=== PATIENT | female | born 1980 | race Caucasian/White ===

== ENCOUNTER 2016-04-27 16:54 | Observation (INO) | payer OTHER ==
--- NOTE | 2016-04-27 17:52 | EDPHY ---
H & P Stated Complaint: Back/abd pain;seen at [facility] [place],tx'd w/GI cocktail &Valium that relieved pain Time Seen by Provider: 04/27/16 17:38 HPI/ROS: CHIEF COMPLAINT: Abdominal pain, lower back pain. HISTORY OF PRESENT ILLNESS: The patient is a 35-year-old female who presents with abdominal pain and upper lumbar back pain since yesterday morning. The pain has been mostly constant since onset. The back pain is paraspinous and mostly on the right side. It stopped for 90 minutes spontaneously but returned. She admits associated nausea but denies vomiting. She denies alleviating or provoking factors. She was seen at [facility] [place] earlier today and had a GI cocktail and 5mg Valium, which improved her pain, but the pain returned. No peripheral edema. No fever, chills, chest pain, shortness of breath, palpitations, diarrhea , urinary complaints, headache, lightheadedness. REVIEW OF SYSTEMS: Aside from elements discussed in the HPI, a comprehensive 10-point review of systems was reviewed and is negative. PAST MEDICAL HISTORY: Possible esophageal spasms? No abscess of ulcer disease , reflux, GERD, or gallstones. SOCIAL HISTORY: Nonsmoker, social alcohol use. VITAL SIGNS: Reviewed by me GENERAL: Well-developed, well-nourished, seems moderately uncomfortable. HEENT: Atraumatic. Eyes: No icterus, no injection. Mouth: dry mucous membranes. No erythema or lesions. Neck: supple with no adenopathy. LUNGS: Clear to auscultation bilaterally, no wheezes, rhonchi or rales. CARDIAC: Regular rate and rhythm, no rubs, murmurs or gallops. ABDOMEN: Epigastric, RUQ tenderness. Positive Mckeon's sign. Soft, nondistended , bowel sounds normal. BACK: Pain indicated to be in upper lumbar, lower thoracic region. No lumbar spine tenderness. No CVA tenderness. EXTREMITIES: No trauma. No edema. Range of motion is normal throughout. NEURO: Alert and oriented, grossly nonfocal. SKIN: Warm and dry, no rash. PSYCHIATRIC: Normal mentation, no agitation. Portions of this note were transcribed by a medical billing supervisor. I personally performed a history, physical exam, medical decision making, and confirmed accuracy of information the transcribed note. Source: Patient Exam Limitations: No limitations - Personal History LMP (Females 10-55): 1-7 Days Ago Current Tetanus Diphtheria and Acellular Pertussis (TDAP): Yes - Medical/Surgical History Other PMH: tachycardia in past - Social History Smoking Status: Never smoked Constitutional: Initial Vital Signs Temperature (C) 36.6 C 04/27/16 16:55 Heart Rate 98 04/27/16 16:55 Respiratory Rate 18 04/27/16 16:55 Blood Pressure 125/87 H 04/27/16 16:55 O2 Sat (%) 97 04/27/16 16:55 O2 Delivery Mode Nasal Cannula O2 (L/minute) 2 Allergies/Adverse Reactions: No Known Allergies Allergy (Unverified 04/27/16 17:00) Home Medications: Medication Instructions Recorded Amphet Asp and D/Amphet [Adderall 20 mg PO DAILY 04/27/16 20 mg (*)] Herbals/Supplements -Info Only 1 ea PO DAILY 04/27/16 Herbals/Supplements -Info Only 1 ea PO DAILY 04/27/16 Multivitamins [Multivitamin (*)] 1 each PO DAILY 04/27/16 Norgestimate-Ethinyl Estradiol 1 each PO DAILY 04/27/16 [Ortho Tri-Cyclen Lo Tablet] Medical Decision Making - Diagnostics Imaging: Study: Ultrasound of the: Indication: Results: 1. Cholelithiasis, gallbladder wall thickening and sonographic Mckeon sign suggest acute cholecystitis. 2. No free fluid or evidence of common bile duct stone. The study was read by the radiologist, Dr. Sweet. I viewed the images myself on the PACS system. ED Course/Re-evaluation: An IV was established and labs ordered. 1L IV saline administered for hydration , along with 1mg IV Dilaudid for pain and 4mg IV Zofran for nausea. RUQ ultrasound ordered. 1899: Ultrasound reported to me by Dr. Sweet as acute cholecystitis. 1904: Consulted with Dr. Plaza, surgery, who will evaluate the patient. Results of the ultrasound discussed with the patient. Dr. Will evaluated the patient emergency department, and agrees with admission and surgery. Patient was stable throughout her emergency department course. Differential Diagnosis: Differential diagnosis for the patient' upper abdominal pain including but not limited to cholecystitis, gastritis, peptic ulcers disease, and pancreatitis. Consult/Admit Bed Type: Dr. Ari Will, med surg - Data Points Laboratory Results: Laboratory Results 04/27/16 17:45 04/27/16 17:45 Medications Given: Discontinued Medications Acetaminophen/Hydrocodone Bitart ([place] 5/325) 1 - 2 tab PO Q4 PRN PRN Reason: Pain, Moderate Able to Take PO Stop: 05/07/16 21:59 Last Admin: 04/28/16 08:08 Dose: 2 tab Hydromorphone HCl (Dilaudid) 1 mg IVP EDNOW ONE Stop: 04/27/16 18:03 Last Admin: 04/27/16 18:15 Dose: 1 mg Hydromorphone HCl (Dilaudid) 1 mg IVP EDNOW ONE Stop: 04/27/16 19:49 Last Admin: 04/27/16 20:15 Dose: 1 mg Hydromorphone HCl (Dilaudid) 0.2 - 0.4 mg IVP Q1HR PRN PRN Reason: Pain, Severe Unable to Take PO Stop: 05/07/16 21:57 Last Admin: 04/28/16 01:31 Dose: 0.4 mg Sodium Chloride (Ns) 1,000 mls @ 0 mls/hr IV ONCE ONE PRN Reason: Wide Open Stop: 04/27/16 18:03 Last Admin: 04/27/16 18:15 Dose: 1,000 mls Ibuprofen (Motrin) 600 mg PO Q6H PRN PRN Reason: PAIN MILD Stop: 10/25/16 10:04 Last Admin: 04/28/16 10:15 Dose: 600 mg Miscellaneous Medication (Norgestimate-Ethinyl Estradiol [Ortho Tri-Cyclen Lo Tablet]) 0 each PO DAILY [place] Stop: 10/25/16 08:59 Last Admin: 04/28/16 08:09 Dose: Not Given Ondansetron HCl (Zofran) 4 mg IVP EDNOW ONE Stop: 04/27/16 18:03 Last Admin: 04/27/16 18:15 Dose: 4 mg Departure - Departure Disposition: [facility] Acute Clinical Impression: Cholecystitis Abdominal pain Qualifiers: Abdominal location: right upper quadrant Qualifier Code: (R10.11) Right upper quadrant pain Condition: Fair Report Scribed for: Joy Finch Report Scribed by: Connor Duncan Date of Report: 04/27/16 Time of Report: 17:48
[2016-04-27] MEDS ORDERED: ONDANSETRON 4 MG/2 ML VIAL IVP ONE (18:02)
[2016-04-27] MEDS ORDERED: HYDROmorphONE/DILAUDID 1 MG/ML SYR IVP ONE ×2 (18:02→19:48)
[2016-04-27] MEDS ORDERED: NS 1,000 ML IV ONE (18:02)
[2016-04-27 18:06] LABS: % IMMATURE GRANULYOCYTES 0.2 % (0.0-1.1); ABSOLUTE IMMATURE GRANULOCYTES 0.02 10^3/uL (0.00-0.10); ADD DIFF? NO; ADD MORPH? NO; ADD SCAN? NO; ATYPICAL LYMPHOCYTE FLAG 30 (0-99); FRAGMENT RBC FLAG 0 (0-99); HEMATOCRIT 39.9 % (38.0-47.0); HEMOGLOBIN 14.4 g/dL (12.6-16.3); LEFT SHIFT FLG 0 (0-99); LIPEMIA HEMOLYSIS FLAG 90 (0-99); MEAN CELL HEMOGLOBIN 30.1 pg (27.9-34.1); MEAN CELL HEMOGLOBIN CONCENTR. 36.1 g/dL (32.4-36.7); MEAN CELL VOLUME 83.5 fL (81.5-99.8); MEAN PLATELET VOLUME 8.3 fL (8.7-11.7); PLATELET CLUMPS FLAG 0 (0-99); PLATELET COUNT 318 10^3/uL (150-400); RED BLOOD CELL COUNT 4.78 10^6/uL (4.18-5.33); RED CELL DISTRIBUTION WIDTH 11.7 % (11.5-15.2)
[2016-04-27 18:20] LABS: ALANINE AMINOTRANSFERASE 24 IU/L (9-52); ALBUMIN 3.9 g/dL (3.5-5.0); ALKALINE PHOSPHATASE 83 IU/L (38-126); ANION GAP 12 mEq/L (8-16); ASPARTATE AMINOTRANSFERASE 23 IU/L (14-46); BILIRUBIN,TOTAL 0.9 mg/dL (0.1-1.4); BILIRUBIN-CONJUGATED 0.2 mg/dL (0.0-0.5); BILIRUBIN-UNCONJUGATED 0.7 mg/dL (0.0-1.1); CALCIUM 8.9 mg/dL (8.5-10.4); CARBON DIOXIDE 25 mEq/l (22-31); CHLORIDE 104 mEq/L (97-110); CREATININE 0.7 mg/dL (0.6-1.0); GLOMERULAR FILTRATION RATE > 60; GLUCOSE 110 mg/dL (70-100); POTASSIUM 3.5 mEq/L (3.5-5.2); SODIUM 141 mEq/L (134-144)
--- NOTE | 2016-04-27 19:01 | US ---
Right Upper Quadrant Sonogram 18:16 p.m. Indication: Right upper quadrant pain. Comparison: None Findings: The normal size liver, measuring 15.6 cm in the midaxillary line, has normal echogenicity a nd echotexture. No sonographic mass or biliary dilation. The gallbladder is filled with echogenic stones and sludge resulting in a "wall echo shadow complex". The gallbladder wall is thickened and partially obscured by the stones measuring up to 7 mm. A sono graphic Mckeon sign was elicited. Common bile duct is upper normal caliber (6 mm mm). No echogenic de bris within the duct. Portal vein is patent. The abdominal aorta is normal caliber. The right kidney is unremarkable. No hydronephrosis. The right kidney measures 10.7 cm in length x 3. 5 x 5 cm axially. No free fluid. The imaged portions of the pancreatic neck, head, and central body are normal. No nicole pancreatic fluid. The pancreatic tail is obscured by bowel gas. Impression: 1. Cholelithiasis, gallbladder wall thickening and sonographic Mckeon sign suggest acute cholecystiti s. 2. No free fluid or evidence of common bile duct stone. Comment: Results were discussed with Dr. Joy Finch at 7 p.m. April 27, 2016.
[2016-04-27] MEDS ORDERED: MIDAZOLAM 2 MG/2 ML VIAL ONE (20:34)
[2016-04-27] MEDS ORDERED: BUPIVACAINE/EPI 0.5% 30 ML SDV ONE (20:39)
[2016-04-27] MEDS ORDERED: SKIN ADHESIVE (DERMABOND) 1 EACH TP ONE (20:39)
[2016-04-27] MEDS ORDERED: PROPOFOL 200 MG/20 ML VIAL ONE (20:39)
[2016-04-27] MEDS ORDERED: fentaNYL 100 MCG/2 ML INJ ONE (20:39)
[2016-04-27] MEDS ORDERED: LIDOCAINE 2% 5 ML SDV ONE (20:41)
[2016-04-27] MEDS ORDERED: DEXAMETHASONE 4 MG/ML VIAL ONE ×2 (20:41)
[2016-04-27] MEDS ORDERED: ONDANSETRON 4 MG/2 ML VIAL ONE (20:42)
[2016-04-27] MEDS ORDERED: NEOSTIGMINE METHYLSULFATE 5 MG/5 ML SYR ONE (20:42)
[2016-04-27] MEDS ORDERED: GLYCOPYRROLATE 0.2 MG/1 ML VIAL ONE ×2 (20:42)
[2016-04-27] MEDS ORDERED: ROCURONIUM 50 MG/5 ML VIAL ONE (20:42)
[2016-04-27] MEDS ORDERED: ceFAZolin 1 GM VIAL ONE ×2 (20:54)
[2016-04-27] MEDS ORDERED: ESMOLOL HCL 100 MG/10 ML VIAL IV ONE ×2 (21:10)
[2016-04-27] MEDS ORDERED: ONDANSETRON 4 MG/2 ML VIAL IVP PRN (21:58)
--- NOTE | 2016-04-27 21:58 | POSTOPPROG ---
Post Op Note Date of Operation: 04/27/16 Surgeon: Ari Will Anesthesiologist: stephanie garcia Pre-op Diagnosis: acute cholecystitis Post-op Diagnosis: same Indication: same Procedure: lap choly Findings: acute choly Inf/Abcess present in the surg proc area at time of surgery?: No EBL: Minimal Complications: none Specimen(s): gallbladder
[2016-04-27] MEDS ORDERED: HYDROCODONE/APAP 5/325 TAB PO PRN (22:00)
[2016-04-27] MEDS ORDERED: LR 1,000 ML IV SCH (22:00)
--- NOTE | 2016-04-27 22:02 | GOP ---
[f rep st] OPERATIVE REPORT DATE OF OPERATION: SURGEON: Ari Will MD ANESTHESIA: General anesthetic. PREOPERATIVE DIAGNOSIS: Cholelithiasis, cholecystitis. POSTOPERATIVE DIAGNOSIS: Cholelithiasis, cholecystitis. PROCEDURE PERFORMED: Laparoscopic cholecystectomy. FINDINGS: INDICATIONS: The patient with unrelenting right upper quadrant pain, cholelithiasis. DESCRIPTION OF PROCEDURE: The abdomen scrubbed with ChloraPrep draped in the usual sterile fashion. Infraumbilical incision made. A Veress needle used to achieve a pneumoperitoneum. The gallbladder was pushed cephalad. The cystic duct and artery were identified. Cleared her surrounding tissue. T he cystic plate fully exposed and then the duct and artery clipped and divided. The gallbladder was removed from below upward with electrocautery and extracted in an Endopouch. There was no bleeding i n the liver bed. All gas and fluid was aspirated from the abdomen. The fascial defect at the umbili cus was closed with an 0 Vicryl figure of 8. Skin with 4-0 Monocryl and Dermabond. The patient tole rated the procedure well. SURGEON: Ari Will MD. /[id number]/MODL
[2016-04-27] MEDS: HYDROmorphONE/DILAUDID 1 MG/ML SYR IVP PRN (22:58)
[2016-04-28] MEDS: HYDROmorphONE/DILAUDID 1 MG/ML SYR IVP PRN (01:31)
[2016-04-28] MEDS ORDERED: NORGESTIMATE ETHINYL ESTRADIOL PO SCH (09:00)
[2016-04-28] MEDS ORDERED: IBUPROFEN 600 MG TAB PO PRN (10:05)
[2016-04-28 11:26] VITALS: BP 101/66; PULSE 72; RESP 16; TEMP 98.1; O2SAT 98
== END 2016-04-28 12:30 | disposition home or self-care (01) ==
LOC: F3E 22:27
PROVIDERS: ADMIT Surgery; ATTEND Surgery
PROC: 0FT44ZZ Resection of Gallbladder, Percutaneous Endoscopic Approach (ICD-10-PCS; principal; 2016-04-27 20:44)
DX: K80.00 Calculus of gallbladder with acute cholecystitis without obstruction (principal)
CPT/HCPCS: 47562; 76705; 96361; 96374; 96375; 96376; 99285; G0378; J0690; J1100; J1170; J2250; J2405; J2704; J2710; J3010

== ENCOUNTER 2017-11-30 11:13 | Emergency (ER) | payer OTHER ==
--- NOTE | 2017-11-30 11:47 | EDPHY ---
H & P Stated Complaint: right thumb injury while washing dishes last night Time Seen by Provider: 11/30/17 11:44 HPI/ROS: HPI: This is a 37-year-old female who presents with Chief Complaint: right thumb injury while washing dishes last night Location: Right thumb Quality: Laceration Duration: 8 or 9:00 p.m. Signs and Symptoms: No bleeding, no radiation, no numbness, no weakness, no tingling, no incontinence,+ decreased range of motion, no swelling, no pain, no fever Timing: Acute Severity: Mild Context: Patient is right-hand dominant, presents with accidentally cutting her right thumb on the dorsal aspect, yesterday evening around 8 or 9:00 p.m. With a knife while cutting vegetables in her kitchen. She reports that it mildly started to bleed but stopped with direct pressure. She took Advil and went to bed. She applied ice this morning. This afternoon she noted the inability to extend the distal portion of her right thumb. She denies any numbness/paresthesias/skin color changes. Tetanus is current. Modifying Factors: See above Comment: ROS: see HPI Constitutional: No fever, no chills, no weight loss Eyes: No blurred vision Respiratory: No shortness of breath, no cough Cardiovascular: No chest pain Gastrointestinal: No nausea, no vomiting no diarrhea Genitourinary: No dysuria Extremities: No myalgias Neurologic: No weakness, no numbness Skin: No rashes Hematologic: No bruising, no bleeding MEDICAL/SURGICAL/SOCIAL HISTORY: Medical/surgical history: tachycardia in past, ADHD, leora, ankle fx Social history: Employed. Nonsmoker. CONSTITUTIONAL: Extremely polite and cooperative middle-aged white female, awake and alert, no obvious distress HEENT: Atraumatic and normocephalic. EXTREMITIES: 2/2 pulses, strength 5/5, right thumb shows 0.5 mm simple, superficial, linear laceration between the DIP and MCP joint; PIP flexion intact. Mild decrease of extension noted at the DI P joint. MCP flexion/ extension intact with good light touch sensation. no deformities, no clubbing, no cyanosis or edema. NEUROLOGICAL: no focal neuro deficits. GCS 15. Light touch sensation intact. SKIN: Warm and dry, no erythema. no rash. Good capillary refill. Source: Patient Exam Limitations: No limitations - Personal History LMP (Females 10-55): 1-7 Days Ago Current Tetanus/Diphtheria Vaccine: Yes Current Tetanus Diphtheria and Acellular Pertussis (TDAP): Yes Tetanus Vaccine Date: < 10 years - Medical/Surgical History Hx Asthma: No Hx Chronic Respiratory Disease: No Hx Diabetes: No Hx Cardiac Disease: No Hx Renal Disease: No Hx Cirrhosis: No Hx Alcoholism: No Hx HIV/AIDS: No Hx Splenectomy or Spleen Trauma: No Other PMH: tachycardia in past, ADHD, leora, ankle fx - Social History Smoking Status: Never smoked Constitutional: Initial Vital Signs Temperature (C) 36.6 C 11/30/17 11:15 Heart Rate 87 11/30/17 11:15 Respiratory Rate 18 11/30/17 11:15 Blood Pressure 114/80 11/30/17 11:15 O2 Sat (%) 97 11/30/17 11:15 O2 Delivery Mode Room Air Allergies/Adverse Reactions: No Known Allergies Allergy (Verified 11/30/17 11:15) Home Medications: Medication Instructions Recorded Amphet Asp and D/Amphet [Adderall 20 mg PO DAILY 04/27/16 20 mg (*)] Herbals/Supplements -Info Only 1 ea PO DAILY 04/27/16 Herbals/Supplements -Info Only 1 ea PO DAILY 04/27/16 Multivitamins [Multivitamin (*)] 1 each PO DAILY 04/27/16 Norgestimate-Ethinyl Estradiol 1 each PO DAILY 04/27/16 [Ortho Tri-Cyclen Lo Tablet] Cephalexin [Keflex (*)] 500 mg PO TID #21 cap 11/30/17 Medical Decision Making Procedures: Procedure: Splint placement. A left thumb aluminum finger splint was applied by the Emergency Room machine set up technician. After application of the splint I returned and re-examined the patient. The splint was adequately immobilizing the joint and distal to the splint the patient's circulation and sensation was intact. ED Course/Re-evaluation: Vital signs reviewed and stable upon arrival. Mild decrease and DI P joint at the thumb extensor mechanism noted. Laceration is superficial and < 1 mm; sutures not indicated; copiously irrigated ; Steri-Strips and clean sterile dressing applied. Will Start on Keflex for antibiotic prophylaxis due to delay in treatment Placed in aluminum finger splint with Hand surgery follow-up. No signs of neurovascular compromise/tenting of skin/compartment syndrome/ extremities and joints examined above and below area of concern and are neurovascularly intact. This patient was seen under the supervision of my secondary supervising physician. I evaluated care for this patient independently. Discussed this patient with Dr. Lackey. Differential Diagnosis: Differential diagnosis includes but is not limited to tendon rupture, nerve injury, sprain, laceration, foreign body. Departure - Departure Disposition: Home, Routine, Self-Care Clinical Impression: Injury of extensor or abductor muscles and tendons of right thumb at forearm level Qualifiers: Encounter type: initial encounter Qualified Code(s): S56.301A - Unspecified injury of extensor or abductor muscles, fascia and tendons of right thumb at forearm level, initial encounter Condition: Good Instructions: Steristrips (ED), Finger Laceration (ED), Tendon Laceration (ED) Additional Instructions: Wear the splint and keep dry and in place for 2-3 days. After 2-3 days, you may remove the dressing and splint; wash the site with mild soap and water and pat dry. Allow Steri-Strips to fall off on their own. Take Tylenol 650 mg every 4 hours and/or Ibuprofen 600 mg every 8 hours with food as needed for pain. Use Percocet every 6 hours as needed for severe/break through pain. Take Keflex 3 times a day for the next 7 days to prevent infection. Follow up with Hand surgery in 5-7 days if unable to extend your thumb at the distal joint space after removal of the splint in 2-3 days at which time they will evaluate and recommend with you if conservative management versus surgery is indicated. Return to the ER immediately if you experience new or worsening pain, discoloration, numbness, tingling, or any other symptoms that concern you. Referrals: Tiffanie Ramirez PA [Primary Care Provider] - As per Instructions Bairon Bennett MD [Medical Doctor] - As per Instructions Prescriptions: Cephalexin [Keflex (*)] 500 mg PO TID #21 cap
[2017-11-30 12:12] VITALS: BP 118/78
== END 2017-11-30 12:14 | disposition home or self-care (01) ==
PROC: 2W3GX1Z Immobilization of Right Thumb using Splint (ICD-10-PCS; principal; 2017-11-30)
DX: S56.301A Unspecified injury of extensor or abductor muscles, fascia and tendons of right thumb at forearm level, initial encounter (principal); S61.011A Laceration without foreign body of right thumb without damage to nail, initial encounter; W26.0XXA Contact with knife, initial encounter; Y93.G1 Activity, food preparation and clean up; Y92.010 Kitchen of single-family (private) house as the place of occurrence of the external cause
CPT/HCPCS: L3925